=== PATIENT | male | born 1935 ===

== ENCOUNTER 2016-10-05 23:31 | Emergency (ER) | payer MEDICARE, MEDICAID ==
[~2016-10-05] VITALS: Ht 177.8 cm; Wt 70.5 kg
[~2016-10-05 23:31] MED LIST: ARICEPT10 MG PO; ASPIRIN 81 LOW81 MG PO; CORRECTOL100 MG PO; DEPAKOTE ER250 M1 PO; LEVEMIR1000 UNITS SC; LOSARTAN POT50 MG PO; LOVASTATIN40 MG PO; MEMANTINE HCL10 MG PO; METOPROL TAR100 MG PO; MULTIVITAMIN PO; OMEPRAZOLE20 M2 PO
[2016-10-06] MEDS ORDERED: AMIODARONE200 MG PO (00:03)
[2016-10-06] MEDS ORDERED: EFFEXOR37.5 MG PO (00:05)
[2016-10-06] MEDS ORDERED: TOPROL XL25 M1 PO (00:06)
[2016-10-06 00:18] LABS: BASO% 0 % (0-3); EOS% 0 % (0-8); HEMATOCRIT 45.3 % (39.0-50.0); HEMOGLOBIN 13.2 g/dl (14.0-18.0); LYMPH% 31 % (15-41); MEAN CELL VOLUME 91.9 fL CALC (80.0-100.0); MEAN CORPUSCULAR HGB 26.8 pG CALC (26.0-32.0); MEAN CORPUSCULAR HGB CONC 29.1 g/L CALC (32.0-36.0); MONO% 7 % (2-13); NEUT% 61 % (42-76); PLATELET COUNT 259 thou/uL (130-400); RED BLOOD COUNT 4.93 mill/uL (4.70-6.10); RED CELL DISTRI WIDTH 15.1 % (11.5-15.5)
[2016-10-06 00:28] LABS: URINE BILIRUBIN - DIPSTICK NEGATIVE (NEGATIVE); URINE BLOOD DIPSTICK MODERATE (NEGATIVE); URINE CLARITY SLIGHT CLOUDY; URINE COLOR YELLOW; URINE GLUCOSE - DIPSTICK NEGATIVE (NEGATIVE); URINE KETONE NEGATIVE (NEGATIVE); URINE NITRITE - DIPSTICK NEGATIVE (Negative); URINE PH 5.5 (4.5-8.0); URINE PROTEIN - DIPSTICK 30 mg/dL (NEG-TRACE); URINE UROBILINOGEN - DIPSTICK 0.2 E.U./dL (0.2)
[2016-10-06 00:48] LABS: MANUAL DIFFERENTIAL YES
[2016-10-06 00:49] LABS: BAND 13 % (0-8); PLATELET ESTIMATE CLUMPED
[2016-10-06 00:50] LABS: URINE LEUK ESTERASE LARGE (NEGATIVE)
[2016-10-06 00:53] LABS: URINE BACTERIA MANY hpf; URINE WBC TNTC WBC/hpf (0-5)
[2016-10-06 00:55] LABS: ALBUMIN 3.9 g/dL (3.2-5.0); CALCIUM 10.2 mg/dL (8.4-10.2); CREATININE 4.2 mg/dL (0.7-1.3); POTASSIUM 4.9 mmol/l (3.5-5.1); TOTAL PROTEIN 8.5 g/dL (6.3-8.2)
[2016-10-06 01:45] VITALS: BP 141/95
[2016-10-06 01:50] LABS: ACT PARTIAL THROMBO TIME 24.1 SECONDS (20.0-32.5); INTERNATIONAL NORMALIZED RATIO 1.6 RATIO (0.7-1.3); PROTHROMBIN TIME 17.8 SECONDS (9.0-12.5)
== END 2016-10-06 03:38 | disposition expired ==
LOC: ED 23:31
PROVIDERS: Emergency Medicine
PROC: 5A12012 Performance of Cardiac Output, Single, Manual (ICD-10-PCS; principal; 2016-10-06)
PROC: 5A1935Z Respiratory Ventilation, Less than 24 Consecutive Hours (ICD-10-PCS; 2016-10-06)
PROC: 02HV33Z Insertion of Infusion Device into Superior Vena Cava, Percutaneous Approach (ICD-10-PCS; 2016-10-06)
DX: A41.9 Sepsis, unspecified organism (principal); R65.21 Severe sepsis with septic shock; I46.9 Cardiac arrest, cause unspecified; N17.9 Acute kidney failure, unspecified; R74.8 Abnormal levels of other serum enzymes; E86.0 Dehydration; E87.2 Acidosis; T17.918A Gastric contents in respiratory tract, part unspecified causing other injury, initial encounter; G30.9 Alzheimer's disease, unspecified; F02.81 Dementia in other diseases classified elsewhere, unspecified severity, with behavioral disturbance; E78.5 Hyperlipidemia, unspecified; E11.51 Type 2 diabetes mellitus with diabetic peripheral angiopathy without gangrene; I10 Essential (primary) hypertension; K21.9 Gastro-esophageal reflux disease without esophagitis